=== PATIENT | male | born 1975 | race Caucasian/White ===

== ENCOUNTER 2016-10-22 16:44 | Emergency (ER) | payer OTHER ==
[~2016-10-22] VITALS: Ht 180.3 cm; Wt 87.0 kg
[2016-10-22] MEDS ORDERED: SODIUM CHLORIDE 0.9% 1,000 ML IV ONE (21:20)
[2016-10-22] MEDS ORDERED: MORPHINE SULFATE 4 MG/ML CPJ (NOT FOR IM USE) IV STA (21:20)
[2016-10-22] MEDS ORDERED: LIDOCAINE HCL 1% 20ML VIAL (Pyxis) INJ INFIL ONE (22:30)
[2016-10-22] MEDS ORDERED: MORPHINE SULFATE 4 MG/ML CPJ (NOT FOR IM USE) IV ONE (23:30)
[2016-10-23 01:39] VITALS: BP 123/76
== END 2016-10-23 01:55 | disposition home or self-care (01) ==
LOC: ER 22:02
DX: S63.257A Unspecified dislocation of left little finger, initial encounter (principal); S40.019A Contusion of unspecified shoulder, initial encounter; S09.90XA Unspecified injury of head, initial encounter; F17.200 Nicotine dependence, unspecified, uncomplicated; Z88.6 Allergy status to analgesic agent; V23.9XXA Unspecified motorcycle rider injured in collision with car, pick-up truck or van in traffic accident, initial encounter; Y93.89 Activity, other specified; Y92.89 Other specified places as the place of occurrence of the external cause; Y99.8 Other external cause status
CPT/HCPCS: 26700; 73030; 73130; 96361; 96374; 96375; 99285; J2270; J3490; J7030; Z7610

== ENCOUNTER 2017-07-14 20:00 | Emergency (ER) | payer OTHER ==
[~2017-07-14] VITALS: Ht 175.3 cm; Wt 77.0 kg
[2017-07-14] MEDS ORDERED: IBUPROFEN 600MG TABLET PO ONE (21:15)
[2017-07-14 23:33] VITALS: BP 119/69
== END 2017-07-14 23:45 | disposition home or self-care (01) ==
LOC: ER 20:48
DX: S40.011A Contusion of right shoulder, initial encounter (principal); Z88.6 Allergy status to analgesic agent; F17.200 Nicotine dependence, unspecified, uncomplicated; F99 Mental disorder, not otherwise specified; V43.62XA Car passenger injured in collision with other type car in traffic accident, initial encounter; Y93.89 Activity, other specified; Y92.488 Other paved roadways as the place of occurrence of the external cause
CPT/HCPCS: 73030; 99284

== ENCOUNTER 2023-02-07 10:42 | Emergency (ER) | payer MEDICAID, OTHER | END 2023-02-07 13:12 | disposition left against medical advice (07) | LOC: ER 11:12 | DX: J02.9 Acute pharyngitis, unspecified (principal) | CPT/HCPCS: 99281 ==